=== PATIENT | female | born 1955 | race Caucasian/White ===

== ENCOUNTER → 2016-02-28 | Outpatient (CLI) | payer BC, OTHER ==
[~2016-02-28] MED LIST: ALPR-411 PO; ESTR1TAB PO; FRCT/ PO; GLUC15002 PO; LORA24TA7 PO; MULT-506 PO; OMEP20CA9 PO; RIZA10TA19 PO; SIMV20TA5 PO; SULI150T PO
--- NOTE | 2016-02-28 16:30 | DIAGNOSTIC IMAGING REPORT ---
RIGHT KNEE 4 OR MORE CLINICAL HISTORY: RIGHT KNEE PAIN Right COMPARISON STUDY: None. FINDINGS: Severe cartilage space narrowing within the lateral patellofemoral compartment with [id number] articulation, subchondral sclerosis, subchondral cystic change, and marginal osteophytes. There are small marginal osteophytes within the medial and lateral compartment of the knee with associated mild cartilage space narrowing. There is mild cartilage space narrowing within the medial and lateral compartment of the left knee. No acute fracture or dislocation within the right knee. No significant knee effusion. Ossific density abutting the medial tibial spine. This favors an old ACL injury/tear. IMPRESSION: 1. No acute fracture or dislocation within the right knee. 2. Tricompartmental osteoarthritis most pronounced at the lateral patellofemoral compartment. 3. Well-corticated ossific density abutting the medial tibial spine. This may be due to an old ACL injury/tear. Electronically signed by: Freeman Zimmerman M.D. 02/28/2016 4:28 PM Dictated Date/Time: 02/28/2016 4:26 PM
== END | disposition home or self-care (01) ==
LOC: C.RDSM 10:15
PROVIDERS: ATTEND Internal Medicine
DX: M25.561 Pain in right knee (principal)

== ENCOUNTER → 2017-01-08 | Outpatient (CLI) | payer BC | END | disposition home or self-care (01) | LOC: C.PAPS 17:59 | PROVIDERS: ATTEND Obstetrics & Gynecology | DX: Z01.419 Encounter for gynecological examination (general) (routine) without abnormal findings (principal) ==

== ENCOUNTER → 2017-02-02 | Outpatient (CLI) | payer BC ==
--- NOTE | 2017-02-06 13:37 | MAMMOGRAPHY REPORT ---
BILATERAL DIGITAL SCREENING MAMMOGRAM TOMOSYNTHESIS WITH CAD: 02/02/2017 CLINICAL HISTORY: Routine screening. Patient has no complaints. TECHNIQUE: Breast tomosynthesis in addition to standard 2D mammography was performed. Current study was also evaluated with a Computer Aided Detection (CAD) system. COMPARISON: Comparison is made to exams dated: 02/02/2016 mammogram, 01/27/2015 mammogram, 4 mammogram, 01/23/2013 mammogram, and 01/23/2012 mammogram - [facility]. BREAST COMPOSITION: There are scattered areas of fibroglandular density in both breasts. FINDINGS: No suspicious masses, calcifications, or areas of architectural distortion are noted in ei ther breast. There has been no significant interval change compared to prior exams. A biopsy marker clip is again noted in the left medial breast. Bilateral nodularity is stable compared to prior exam s. A linear scar marker denotes a scar on the left upper outer breast. Bilateral benign appearing c alcifications are also stable. IMPRESSION: ACR BI-RADS CATEGORY 2: BENIGN There is no mammographic evidence of malignancy. A 1 year screening mammogram is recommended. The pa tient will receive written notification of the results. Approximately 10% of breast cancers are not detected with mammography. A negative mammographic report should not delay biopsy if a clinically suggestive mass is present. Catherine Faith M.D. /:02/02/2017 15:31:28 Classifier Tender: Miesha GALVAN)(M), [facility] letter sent: Normal 1/2 BI-RADS Code: ACR BI-RADS Category 2: Benign
== END | disposition home or self-care (01) ==
LOC: C.MAMM 13:34
PROVIDERS: ATTEND Obstetrics & Gynecology
DX: Z12.31 Encounter for screening mammogram for malignant neoplasm of breast (principal)

== ENCOUNTER → 2017-04-26 | Outpatient (CLI) | payer OTHER | END | disposition home or self-care (01) | LOC: C.LABSPEC 13:41 | PROVIDERS: ATTEND Physician Assistant | DX: N76.2 Acute vulvitis (principal) ==

== ENCOUNTER 2022-03-17 12:59 | Observation (INO) ==
--- NOTE | 2022-03-17 16:41 | Ultrasound Report ---
RIGHT LOWER EXTREMITY VENOUS DOPPLER CLINICAL HISTORY: Right leg pain and swelling. r/o DVT COMPARISON STUDY: No previous studies for comparison. TECHNIQUE: Sonography of the deep venous system of the right lower extremity was performed. Compress ion and augmentation were evaluated. FINDINGS: There is no deep venous thrombus within the right common femoral or superficial femoral vei ns. Note is made of deep venous thrombus within the right popliteal, posterior tibial and anterior ti bial veins. IMPRESSION: Deep venous thrombus within the right popliteal, posterior tibial and anterior tibial vei ns. ACT 112: Negative or not required by law. Electronically signed by: Blaise Garber M.D. 03/17/2022 4:40 PM
--- NOTE | 2022-03-17 16:48 | Emergency Department Note ---
Impression & Plan DVT (deep venous thrombosis) ED Provider Note INFORMANT: Patient ED PROVIDER(S): Tate Medellin DO CHIEF COMPLAINT: Leg swelling/discomfort PLAN: Disposition: Admission Condition: Good Outpatient prescription management: none Referral: I spoke with the hospitalist, who will see the patient for a dmission/observation and further evaluation and consultation. MEDICAL DECISION MAKING: This is a 66-year-old female with a history of breast cancer in 2020 status post radiation therapy presents with a chief complaint of some discomfort in the right calf and some swelling of the ankle. She states that she has had this for couple of days. The patient reports that she recently had a inconclusive biopsy of her uterus last Sunday. She states that they are going to schedule her for hysterectomy. The patient states that she thinks this is going to happen in April. The patient reports some mild continuous bleeding since the biopsy. She states that she has been short of breath as well but she states this has been going on since she had COVID in January. Her physical exam reveals some tenderness in the right calf as well as some swelling in the right ankle. Her vital signs reveal mild hypertension. Pulse is 93. Oxygen saturation 95% on room air. Ultrasound of the right leg shows a right popliteal, posterior tibial and anterior tibial DVT. The patient's blood work shows an unremarkable CBC with no significant anemia. Chemistry panel was without electrolyte abnormality or kidney dysfunction. Troponin was negative. CT scan of the chest does sug gest a right-sided lobar pulmonary emboli. The patient was told the results of the test. She was started on IV heparin bolus and drip. She was given some IV fluids as well as some IV morphine for her discomfort. I spoke with the hospitalist about the patient. She will be seen for further inpatient evaluation and care. Triage Nursing notes reviewed. Vital Signs: reviewed Prior /Outside records reviewed: Gynecology visit from 03/08/2022 shows concerning findings for possible uterine cancer. Also evaluated for postmenopausal bleeding. Differential diagnosis: Differential includes DVT, PE, anemia, electrolyte abnormality, infection, other Diagnostics, as interpreted by me: 12 lead ECG: Sinus rhythm rate of 78 first-degree AV block. No ST elevation. No PVCs. Normal QTc. Cardiac Monitoring ordered: Sinus rhythm in the 70s. Medical decision rules: PERC RULE positive Imaging studies: Ultrasound of the leg shows a DVT. CT scan of the chest did not show pneumonia but does show PE. Procedures: none. Critical care: I have personally spent 30 minutes of critical care time in the direct management of this patient. This includes bedside care, interpretation of diagnostic studies, and testing, discussion with consultants, patient, and family members, and other required patient management activities. This 30 minutes is in excess of all separately billable procedures. HPI: See MDM above. PAST MEDICAL HISTORY: See Below PAST SURGICAL HISTORY: See Below SOCIAL HISTORY: See Below HOME MEDICATIONS: See Below ALLERGIES: See Below VITALS: See Below PHYSICAL EXAMINATION: CONSTITUTIONAL/VITAL SIGNS: Reviewed GENERAL: Non-toxic in appearance. INTEGUMENTARY: Warm, dry, and [place]. HEAD: Normocephalic. EYES: without scleral icterus. ENT/OROPHARYNX: clear and moist. RESPIRATORY: No increased work of breathing. Lungs clear. CARDIOVASCULAR: Regular rate. Regular rhythm. GI/ABDOMEN: Soft and nontender. . EXTREMITIES: Right calf tenderness with some edema to the right ankle. NEUROLOGICAL: Intact without focal deficits. PSYCHIATRIC: Normal affect. MUSCULOSKELETAL: Normal. TRIAGE NURSING DOCUMENTATION REVIEWED. Past Med/Surg History Medical History Anxiety Breast CA 2020 radiation tx- dr marilyn PENALOZA Degenerative disc disease Diverticulitis of colon GERD (gastroesophageal reflux disease) Hyperlipidemia Incontinence Migraine Osteoarthritis Temporomandibular joint disorder NO HX OF LOCKING Surgical History History of breast biopsy History of colonoscopy History of cystoscopy History of esophagogastroduodenoscopy (EGD) History of eye surgery L History of tonsillectomy History of tooth extraction S/P cervical spinal fusion 06/2021 elsi morales S/P cystoscopy S/P lumpectomy, right breast 2020 Status post left foot surgery Status post right foot surgery right foot plantar fascia release and nerve decompression Family History Grandmother (Paternal) Family history of diabetes mellitus Brother Cardiac disorder Heart disease Mother Hypertension Breast cancer Cancer Allergies Father Cancer Hearing loss Other No family history of bleeding disorder Denies family history of Stroke Asthma Social History Smoking Status: Never smoker Tobacco Type: Cigarettes Second Hand Exposure: No; Hx Alcohol Use: Yes Alcohol type: wine Alcohol Intake Frequency: 2-3 x/Week Hx Substance Use: Yes (CBD with small dose of THC (OTC dose)-tincture) Preferred Language: Bulgarian Communication Ability: Effective Visual Impairment: No Limitations Hearing Ability: Normal 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 Beliefs That Will Affect Care: None marital status: Current Living Situation: Spouse current occupational status: retired current occupation: Retired from [employer] Feels Safe at Home: Yes caffeine: Yes during the past year weight has: remained stable Physical Activity Frequency: Daily Assistive Devices: Glasses Allergies Allergies Allergy/AdvReac Type Severity Reaction Status Date / Time amoxicillin [From Augmentin] Allergy Intermediate Hives Verified 03/15/22 13:02 ciprofloxacin [From Cipro] Allergy Intermediate Hives Verified 03/15/22 13:02 clavulanic acid Allergy Intermediate Hives Verified 03/15/22 13:02 [From Augmentin] Sulfa (Sulfonamide Allergy Intermediate HIVES Verified 03/15/22 13:02 Antibiotics) Home Meds Home Medications Medication Instructions Recorded Confirmed azmoiydvsr-ywyticiyojxdu-fgcqstxq 1 cap PO Q6 PRN Migraine Headache 01/23/18 03/15/22 50 mg-300 mg-40 mg capsule (Fioricet) multivitamin 1 tab PO QAM 01/23/18 03/15/22 omeprazole magnesium 20 mg 20 mg PO QAM 01/23/18 03/15/22 tablet,delayed release (Prilosec OTC) rizatriptan 10 mg tablet (Maxalt) 1 tab PO UD PRN Migraine Headache 01/23/18 03/15/22 simvastatin 20 mg tablet (Zocor) 20 mg PO HS 01/23/18 03/15/22 sucralfate 1 gram tablet (Carafate) 1 g PO HS 01/23/18 03/15/22 sulindac 150 mg tablet 150 mg PO BID 12/30/18 03/15/22 turmeric 400 mg capsule 400 mg PO QAM 04/12/20 03/15/22 antiarthritic combination no.2 900 1,500 mg PO QAM 04/14/20 03/15/22 mg tablet (glucosamine-chondroitin) calcium carbonate 600 mg-vitamin 1 cap PO QAM 04/14/20 03/15/22 D3 12.5 mcg (500 unit) capsule (Calcium 600 with Vitamin D3) fluticasone propionate 50 1 spray intranasal BID 04/14/20 03/15/22 mcg/actuation nasal spray,suspension nystatin-triamcinolone 100,000 1 applic topical BID PRN Rash 09/14/21 03/15/22 unit/gram-0.1 % topical ointment tamoxifen 20 mg tablet 20 mg PO HS 09/23/21 03/15/22 Previous Rx's Medication Instructions Recorded 3-in-1 Commode #1 ea 07/15/20 conjugated estrogens 0.625 mg/gram 0.625 mg vaginal 2XWK #30 grams 12/20/21 vaginal cream (Premarin) alprazolam 0.25 mg tablet 0.25 mg PO HS PRN Sleep #30 tabs 02/20/22 vibegron 75 mg tablet (Gemtesa) 75 mg PO DAILY #90 tabs 03/15/22 Results & Data (ED) Vital Signs Vital Signs - 24 hr 03/17/22 13:16 03/17/22 17:17 03/17/22 17:19 Temperature 36.7 C Temperature Source Temporal Artery Scan Pulse Rate 93 H 78 Pulse Rate [Left Finger] 78 Pulse Rate from SpO2 Sensor Pulse Rhythm Regular Pulse Rhythm [Left Finger] Regular Pulse Strength [Left Finger] Normal Respiratory Rate 20 20 20 Respiratory Effort / Characteristics Non-Labored Spontaneous Non-Labored Spontaneous Respiratory Depth Normal Normal Respiratory Pattern Regular Regular Blood Pressure 162/93 H Blood Pressure [Right Arm] 167/88 H Blood Pressure Mean 116 Blood Pressure Mean [Right Arm] 114 Blood Pressure Position [Right Arm] Sitting Pulse Oximetry 95 97 97 Oxygen Delivery Method Room Air Room Air Room Air Sepsis Recent Fever Within 48 Hours No Sepsis New/Unexplained Change in Mental Status No Sepsis Action Taken by Nursing No Action Required 03/17/22 18:02 03/17/22 18:02 03/17/22 18:30 Temperature Temperature Source Pulse Rate 90 Pulse Rate [Left Finger] Pulse Rate from SpO2 Sensor 91 H Pulse Rhythm Pulse Rhythm [Left Finger] Pulse Strength [Left Finger] Respiratory Rate 20 Respiratory Effort / Characteristics Respiratory Depth Respiratory Pattern Blood Pressure 149/91 H 129/111 H Blood Pressure [Right Arm] Blood Pressure Mean 110 117 Blood Pressure Mean [Right Arm] Blood Pressure Position [Right Arm] Pulse Oximetry 98 Oxygen Delivery Method Sepsis Recent Fever Within 48 Hours Sepsis New/Unexplained Change in Mental Status Sepsis Action Taken by Nursing 03/17/22 18:30 Temperature Temperature Source Pulse Rate 85 Pulse Rate [Left Finger] Pulse Rate from SpO2 Sensor 85 Pulse Rhythm Pulse Rhythm [Left Finger] Pulse Strength [Left Finger] Respiratory Rate 16 Respiratory Effort / Characteristics Respiratory Depth Respiratory Pattern Blood Pressure Blood Pressure [Right Arm] Blood Pressure Mean Blood Pressure Mean [Right Arm] Blood Pressure Position [Right Arm] Pulse Oximetry 96 Oxygen Delivery Method Sepsis Recent Fever Within 48 Hours Sepsis New/Unexplained Change in Mental Status Sepsis Action Taken by Nursing Laboratory Data 03/17/22 17:00 03/17/22 17:00 Lab Results 03/17/22 03/17/22 03/17/22 Range/Units 17:00 17:00 17:00 WBC 5.91 (4.8-10.8) K/ul RBC 4.63 (4.20-5.40) M/uL Hgb 14.0 (12.0-16.0) g/dl Hct 42.3 (37.0-47.0) % MCV 91.4 (80.0-100.0) fL MCH 30.2 (25.0-34.0) pg MCHC 33.1 (32.0-36.0) g/dL RDW Std Deviation 41.0 (36.4-46.3) fL RDW Coeff of Anuj 12.2 (11.5-14.5) % Plt Count 202 (130-400) K/uL MPV 9.7 (9.4-12.4) fL Immature Gran % (Auto) 0.2 % Neut % (Auto) 47.4 % Lymph % (Auto) 36.4 % [place] % (Auto) 11.3 % Eos % (Auto) 3.9 % Baso % (Auto) 0.8 % Neut # (Auto) 2.80 (1.40-6.50) K/uL Lymph # (Auto) 2.15 (1.2-3.4) K/uL [place] # (Auto) 0.67 H (0.11-0.59) K/uL Eos # (Auto) 0.23 (0-0.50) K/uL Baso # (Auto) 0.05 (0-0.2) K/uL Immature Gran # (Auto) 0.01 (0.01-0.20) K/uL PT 10.1 (9.0-12.0) Seconds INR 0.9 (0.9-1.1) APTT 23.7 (21.0-31.0) Seconds PTT Ratio 0.9 Sodium 138 (136-145) mmol/L Potassium 4.3 (3.5-5.1) mmol/L Chloride 107 (98-107) mmol/L Carbon Dioxide 23 (21-32) mmol/L Anion Gap 8 (3-11) BUN 22 (6-23) mg/dl Creatinine 0.89 (0.6-1.2) mg/dl Est Cr Clr Drug Dosing 62.0 ml/min Est GFR ( Amer) 77.7 ml/min Est GFR (Non-Af Amer) 67.1 ml/min BUN/Creatinine Ratio 24.7 H (10-20) Glucose 103 H (70-99(Fasting)) mg/dl Calcium 10.1 (8.5-10.1) mg/dl Total Bilirubin 0.4 (0.2-1.0) mg/dl AST 20 (13-39) U/L ALT 18 (7-52) U/L Alkaline Phosphatase 71 (34-104) U/L Troponin I High Sens 2.8 (0-14) pg/ml Total Protein 8.2 (6.0-8.3) gm/dl Albumin 4.6 (3.4-5.0) gm/dl Globulin 3.6 (2.5-4.0) gm/dl Albumin/Globulin Ratio 1.3 (0.9-2) Administered Medications Discontinued Medications Sodium Chloride (Nss) 500 mls @ 999 mls/hr IV .Q31M STA Stop: 03/17/22 17:22 Last Infusion: 03/17/22 18:02 Dose: 0 mls/hr Documented By: Admin: 03/17/22 17:21 Dose: 999 mls/hr Documented By: LOAN Ioversol (Optiray 320 500ml) 120 ml IV ONCE ONE Stop: 03/17/22 17:52 Last Admin: 03/17/22 17:55 Dose: 120 ml Documented By: MERCED Imaging Data Radiologist's Impression: Venous Doppler Study 03/17/22 13:19 RIGHT LOWER EXTREMITY VENOUS DOPPLER CLINICAL HISTORY: Right leg pain and swelling. r/o DVT COMPARISON STUDY: No previous studies for comparison. TECHNIQUE: Sonography of the deep venous system of the right lower extremity was performed. Compression and augmentation were evaluated. FINDINGS: There is no deep venous thrombus within the right common femoral or superficial femoral veins. Note is made of deep venous thrombus within the right popliteal, posterior tibial and anterior tibial veins. IMPRESSION: Deep venous thrombus within the right popliteal, posterior tibial and anterior tibial veins. ACT 112: Negative or not required by law. Electronically signed by: Blaise Garber M.D. 03/17/2022 4:40 PM Chest CTA 03/17/22 16:52 CT ANGIOGRAPHY OF THE CHEST, PULMONARY EMBOLUS PROTOCOL CLINICAL HISTORY: Dyspnea, US shows DVT COMPARISON STUDY: Chest radiograph December 31, 2018. TECHNIQUE: Following IV administration of 120 mL of Optiray, helical axial images of the chest were obtained utilizing the pulmonary embolus protocol. Maximal intensity projections and sagittal and coronal reformats were viewed on an independent 3D workstation. IV contrast was administered without complication. Automated exposure control was utilized for the study. A dose lowering technique was utilized adhering to the principles of ALARA. CT DOSE: 534.66 mGy.cm FINDINGS: Lobar pulmonary emboli within the right lung are noted. Specifically, there is an embolus within the lobar branches to the right lower and right middle lobes. No pneumothorax or pleural effusion. No pulmonary infarct is present. Mild cardiomegaly is noted. There is no pericardial effusion. No thoracic lymphadenopathy is noted. There are no suspicious pulmonary nodules. Groundglass opacities favor atelectasis. No acute fracture within the bony thorax is noted. IMPRESSION: 1. Right-sided lobar pulmonary emboli. No pulmonary infarct. 2. No consolidation. 3. Mild cardiomegaly. ACT 112: Negative or not required by law. Electronically signed by: Blaise Garber M.D. 03/17/2022 6:08 PM Discharge Plan Visit Data Chief Complaint: Illness Stated Complaint: CONCERN OF BLOODCLOT ED Provider: Tate Medellin Discharge Problem: DVT (deep venous thrombosis) Patient Disposition: Being Evaluated by Hospitalist Forms Stand Alone Forms: [facility] Prescriptions Prescriptions: No Action fluticasone propionate 50 mcg/actuation spray,suspension 1 spray intranasal BID Rx Instructions: administer into each nostril glucosamine-chondroitin 900 mg tablet 1,500 mg PO QAM calcium carbonate-vitamin D3 [Calcium 600 with Vitamin D3] 600 mg(1,500mg) -500 unit capsule 1 cap PO QAM Premarin 0.625 mg/gram cream 0.625 mg vaginal 2XWK Qty: 30 3RF alprazolam 0.25 mg tablet 0.25 mg PO HS PRN (Reason: Sleep) Qty: 30 3RF Rx Instructions: TAKE 1 TABLET BY MOUTH AT BEDTIME NEEDED FOR SLEEP turmeric 400 mg capsule 400 mg PO QAM Gemtesa 75 mg tablet 75 mg PO DAILY Qty: 90 3RF (DME) 3-in-1 Commode Misc See Rx Instructions .MEDSUPPLY Qty: 1 0RF Rx Instructions: As directed multivitamin Tablet 1 tab PO QAM sucralfate [Carafate] 1 gram Tablet 1 g PO HS rizatriptan [Maxalt] 10 mg Tablet 1 tab PO UD MDD 20mg PRN (Reason: Migraine Headache) Rx Instructions: use at onset of headache,may repeat in 2 hours simvastatin [Zocor] 20 mg Tablet 20 mg PO HS omeprazole magnesium [Prilosec OTC] 20 mg Tablet,Delayed Release (Dr/Ec) 20 mg PO QAM syivnpoxyh-ojzopgqwfstzr-vnmn [Fioricet] 50-300-40 mg Capsule 1 cap PO Q6 PRN (Reason: Migraine Headache) sulindac 150 mg Tablet 150 mg PO BID tamoxifen 20 mg tablet 20 mg PO HS nystatin-triamcinolone 100,000-0.1 unit/gram-% ointment 1 applic topical BID PRN (Reason: Rash) Referrals Referrals: Tyler Paredes MD [Primary Care Provider] -
[2022-03-17] MEDS ORDERED: SODIUM CHLORIDE 0.9% 500 ML IV STA (16:52)
[2022-03-17 17:28] LABS: Basophils # (auto) 0.05 K/uL (0-0.2); Basophils % (auto) 0.8 %; Eosinophils # (auto) 0.23 K/uL (0-0.50); Eosinophils % (auto) 3.9 %; Hematocrit (blood only) 42.3 % (37.0-47.0); Immature Granulocytes # (auto) 0.01 K/uL (0.01-0.20); Immature Granulocytes % (auto) 0.2 %; Lymphocytes # (auto) 2.15 K/uL (1.2-3.4); Lymphocytes % (auto) 36.4 %; Mean Corpuscular Hemoglobin 30.2 pg (25.0-34.0); Mean Corpuscular Hgb Conc 33.1 g/dL (32.0-36.0); Mean Corpuscular Volume 91.4 fL (80.0-100.0); Mean Platelet Volume 9.7 fL (9.4-12.4); Monocytes # (auto) 0.67 K/uL (0.11-0.59); Monocytes % (auto) 11.3 %; Neutrophils % (auto) 47.4 %; Platelet Count 202 K/uL (130-400); RDW Coefficient of Variation 12.2 % (11.5-14.5); Red Blood Count 4.63 M/uL (4.20-5.40); White Blood Count 5.91 K/ul (4.8-10.8)
[2022-03-17 17:35] LABS: Albumin Globulin Ratio 1.3 (0.9-2); Albumin Level 4.6 gm/dl (3.4-5.0); BUN Creatinine Ratio 24.7 (10-20); Bilirubin,Total 0.4 mg/dl (0.2-1.0); Calcium 10.1 mg/dl (8.5-10.1); Est GFR (African American) 77.7 ml/min; Est GFR (Non-African American) 67.1 ml/min; Globulin 3.6 gm/dl (2.5-4.0); Potassium 4.3 mmol/L (3.5-5.1); Total Protein 8.2 gm/dl (6.0-8.3)
[2022-03-17 17:42] LABS: Troponin I High Sensitivity 2.8 pg/ml (0-14)
[2022-03-17 17:51] LABS: INR 0.9 (0.9-1.1); Partial Thromboplastin Ratio 0.9; Partial Thromboplastin Time 23.7 Seconds (21.0-31.0); Prothrombin Time 10.1 Seconds (9.0-12.0)
[2022-03-17] MEDS ORDERED: OPTIRAY 320 500ml IV ONE (17:51)
--- NOTE | 2022-03-17 18:10 | CT Scan Report ---
CT ANGIOGRAPHY OF THE CHEST, PULMONARY EMBOLUS PROTOCOL CLINICAL HISTORY: Dyspnea, US shows DVT COMPARISON STUDY: Chest radiograph December 31, 2018. TECHNIQUE: Following IV administration of 120 mL of Optiray, helical axial images of the chest were o btained utilizing the pulmonary embolus protocol. Maximal intensity projections and sagittal and cor onal reformats were viewed on an independent 3D workstation. IV contrast was administered without co mplication. Automated exposure control was utilized for the study. A dose lowering technique was ut ilized adhering to the principles of ALARA. CT DOSE: 534.66 mGy.cm FINDINGS: Lobar pulmonary emboli within the right lung are noted. Specifically, there is an embolus within the lobar branches to the right lower and right middle lobes. No pneumothorax or pleural effus ion. No pulmonary infarct is present. Mild cardiomegaly is noted. There is no pericardial effusion. N o thoracic lymphadenopathy is noted. There are no suspicious pulmonary nodules. Groundglass opacities favor atelectasis. No acute fracture within the bony thorax is noted. IMPRESSION: 1. Right-sided lobar pulmonary emboli. No pulmonary infarct. 2. No consolidation. 3. Mild cardiomegaly. ACT 112: Negative or not required by law. Electronically signed by: Blaise Garber M.D. 03/17/2022 6:08 PM
[2022-03-17] MEDS ORDERED: Heparin IV Adult Wt-Based Standard WITH Bolus Protocol IV STA (18:19)
[2022-03-17] MEDS ORDERED: Heparin IV Adult Wt-Based Standard WITH Bolus Protocol IV SCH (18:30)
[2022-03-17] MEDS ORDERED: HEPARIN SOD (PORCINE) 1000 UNIT/ML IV ONE ×2 (18:35→18:45)
[2022-03-17] MEDS ORDERED: MoRPHine SULFATE 2 MG/ML CARP IV STA (18:38)
[2022-03-17] MEDS ORDERED: HEPARIN SODIUM/DEXTROSE 25,000 UNITS/500 ML BAG IV SCH (18:45)
--- NOTE | 2022-03-17 19:23 | History & Physical Report ---
Date of Service March 17, 2022 Assessment & Plan (1) Pulmonary embolism: (2) DVT (deep venous thrombosis): Plan: RLE DVT/ PE present on arrival Patient is 66-year-old female with PMH right breast CA s/p lumpectomy and radiation, prediabetes, HLD, GERD, thyroid nodule presented to ER with complaint of right lower leg discomfort x couple of days and right ankle swelling x 1 day. Current workup for post-menopausal bleeding possible uterine malignancy. Recent COVID-19 in 01/2022. In ER no hypoxia or tachycardia RLE Venous Doppler: Deep venous thrombus within the right popliteal, posterior tibial and anterior tibial veins. CTA Chest: Right-sided lobar pulmonary emboli. No pulmonary infarct. No consolidation. Mild cardiomegaly. In ER Heparin IV started Continue IV heparin Monitor for any bleeding/increased vaginal bleeding CBC, BMP in am (3) Post-menopausal bleeding: Plan: Several episodes vaginal bleeding. Following with [facility] gynecology, concern for possible underlying uterine malignancy. 03/08/2022 endometrial biopsy: Atrophic endometrium per chart review. Having vaginal spotting since biopsy Will need to have outpatient f/u with gynecology oncology for further work-up (4) Prediabetes: Plan: A1c: 5.5 on 05/2021 Current diet controlled. Recently prescribed Ozempic however has not started yet Diabetic diet (5) Breast cancer: Plan: History of right breast CA s/p lumpectomy and radiation Currently tamoxifen on hold per oncology, Dr. Meza (6) Hyperlipidemia: Plan: Continue simvastatin (7) GERD (gastroesophageal reflux disease): Plan: Continue PPI, Carafate DVT Prophylaxis On Heparin IV for DVT/PE present upon arrival Full Code as per discussion with pt Follows with Dr Paredes for routine care Pt was seen and care coordinated with Dr Angulo. See addendum I spent a total of 60 minutes reviewing notes, outpatient records, labs, medication, coordinating, documenting and providing care for this patient excluding time spent in the performance of separately billed services. History of Present Illness Chief Complaint: Right ankle swelling, right leg discomfort Primary Care Provider: Tyler Paredes MD Patient is 66-year-old female with PMH right breast CA s/p lumpectomy and radiation, prediabetes, HLD, GERD, thyroid nodule presented to ER with complaint of right lower leg discomfort and right ankle swelling. Patient reports has been having bilateral foot pain and calf tenderness for the past 2 months. Several days ago started with increased right calf discomfort. Yesterday noted swelling to right ankle. States past couple of days has noted mild shortness of breath. Denies chest pain. History COVID-19 in January 2022 with symptoms of headache, malaise that lasted for approximately 4 days. Patient with current work-up for postmenopausal vaginal bleeding. Initial episode started in January 2022. Had another episode of vaginal bleeding couple weeks ago. Followed with [place] gyne[facility], concern for possible underlying uterine malignancy. 03/08/2022 endometrial biopsy: Atrophic endometrium. Since biopsy has been having vaginal spotting, using couple of panty liners a day. Denies soaking through any pads/liners. Is to be referred to gynecology oncology for further work-up and consideration of possible D&C or hysterectomy. Oncology, Dr. Meza discontinued tamoxifen 1 week ago secondary to uterine bleeding. Denies recent prolonged immobilization or recent travel. Denies fever/chills, diaphoresis, N/V/D/C, DAIGLE, dizziness, syncope, vision changes, neck pain, CP, orthopnea, palpitations, cough, hemoptysis, sore throat, choking, otalgia, rhinorrhea, abdominal pain, paresthesias, weakness, rashes, urinary symptoms. Allergies Allergy/AdvReac Type Severity Reaction Status Date / Time amoxicillin [From Augmentin] Allergy Intermediate Hives Verified 03/15/22 13:02 ciprofloxacin [From Cipro] Allergy Intermediate Hives Verified 03/15/22 13:02 clavulanic acid Allergy Intermediate Hives Verified 03/15/22 13:02 [From Augmentin] Sulfa (Sulfonamide Allergy Intermediate HIVES Verified 03/15/22 13:02 Antibiotics) Home Medications Medication Instructions Recorded Confirmed Type [id number]-qusuiwktstpzx-hekxaevf 1 cap PO Q6 PRN Migraine Headache 01/23/18 03/17/22 History 50 mg-300 mg-40 mg capsule (Fioricet) multivitamin 1 tab PO QAM 01/23/18 03/17/22 History omeprazole magnesium 20 mg 20 mg PO QAM 01/23/18 03/17/22 History tablet,delayed release (Prilosec OTC) rizatriptan 10 mg tablet (Maxalt) 1 tab PO UD PRN Migraine Headache 01/23/18 03/17/22 History simvastatin 20 mg tablet (Zocor) 20 mg PO HS 01/23/18 03/17/22 History sucralfate 1 gram tablet (Carafate) 1 g PO HS 01/23/18 03/17/22 History sulindac 150 mg tablet 150 mg PO BID PRN Moderate Pain 12/30/18 03/17/22 History (Scale Score 5-6) turmeric 400 mg capsule 400 mg PO QAM 04/12/20 03/17/22 History calcium carbonate 600 mg-vitamin 1 cap PO QAM 04/14/20 03/17/22 History D3 12.5 mcg (500 unit) capsule (Calcium 600 with Vitamin D3) fluticasone propionate 50 1 spray intranasal BID 04/14/20 03/17/22 History mcg/actuation nasal spray,suspension tamoxifen 20 mg tablet 20 mg PO HS 09/23/21 03/17/22 History vibegron 75 mg tablet (Gemtesa) 75 mg PO DAILY #90 tabs 03/15/22 03/17/22 Rx alprazolam 0.25 mg tablet 0.25 mg PO HS 03/17/22 03/17/22 History cholecalciferol (vitamin D3) 125 5,000 unit PO DAILY 03/17/22 03/17/22 History mcg (5,000 unit) tablet (Vitamin D3) docusate sodium 100 mg capsule 100 mg PO DAILY 03/17/22 03/17/22 History Past Med/Surg History Medical History (Updated 03/17/22 @ 20:33 by Kiara Lim PA-C) Anxiety Breast CA 2020 radiation tx- dr marilyn PENALOZA Degenerative disc disease Diverticulitis of colon GERD (gastroesophageal reflux disease) Hyperlipidemia Incontinence Migraine Osteoarthritis Prediabetes Temporomandibular joint disorder NO HX OF LOCKING Surgical History History of breast biopsy History of colonoscopy History of cystoscopy History of esophagogastroduodenoscopy (EGD) History of eye surgery L History of tonsillectomy History of tooth extraction S/P cervical spinal fusion 06/2021 elsi allentovishal S/P cystoscopy S/P lumpectomy, right breast 2020 Status post left foot surgery Status post right foot surgery right foot plantar fascia release and nerve decompression Family History Grandmother (Paternal) Family history of diabetes mellitus Brother Cardiac disorder Heart disease Mother Hypertension Breast cancer Cancer Allergies Father Cancer Hearing loss Other No family history of bleeding disorder Denies family history of Stroke Asthma Social History Smoking Status: Never smoker Tobacco Type: Cigarettes Second Hand Exposure: No; Hx Alcohol Use: Yes Alcohol type: wine Alcohol Intake Frequency: 2-3 x/Week Hx Substance Use: Yes (CBD with small dose of THC (OTC dose)-tincture) Preferred Language: Slovak Communication Ability: Effective Visual Impairment: No Limitations Hearing Ability: Normal Director Of Physician Practices Required: No Beliefs That Will Affect Care: None marital status: Current Living Situation: Spouse current occupational status: retired current occupation: Retired from [employer] Feels Safe at Home: Yes caffeine: Yes during the past year weight has: remained stable Physical Activity Frequency: Daily Assistive Devices: Glasses Review of Systems Review of Systems: All systems reviewed & are unremarkable except as noted in HPI & below Physical Exam Physical Exam: General: no distress, WDWN Head: normocephalic, atraumatic Eyes: conjunctiva non-injected, anicteric ENT: normal inspection external ears, nose, mucous membranes moist Neck: supple, trachea midline Lungs: clear, no respiratory distress, no wheezing/rhonchi/rales CV: RRR, no murmur, no pretibial edema Abd: normal BS, soft, non-tender Ext: no cyanosis, No significant edema to bilateral lower legs. +mild edema right ankle with faint erythema medial and lateral ankle, +calf tenderness RLE. Distal pulses intact, sensation to light touch intact Neuro: A&O x 3, no focal deficits noted, normal affect Skin: warm, dry Results & Data Results & Data ([facility]) Vital Signs (Past 12 Hours) Vital Signs Temp Pulse Pulse Resp BP BP Pulse Ox 03/17/22 19:00 85 19 149/110 H 95 03/17/22 18:30 85 16 96 03/17/22 18:30 129/111 H 03/17/22 18:02 90 20 98 03/17/22 18:02 149/91 H 03/17/22 17:19 78 20 97 03/17/22 17:17 78 20 167/88 H 97 03/17/22 13:16 36.7 C 93 H 20 162/93 H 95 O2 Del Method 03/17/22 19:00 Room Air 03/17/22 18:30 03/17/22 18:30 03/17/22 18:02 03/17/22 18:02 03/17/22 17:19 Room Air 03/17/22 17:17 Room Air 03/17/22 13:16 Room Air Laboratory Results Short CBC 03/17/22 Range/Units 17:00 WBC 5.91 (4.8-10.8) K/ul Hgb 14.0 (12.0-16.0) g/dl Hct 42.3 (37.0-47.0) % Plt Count 202 (130-400) K/uL BMP 03/17/22 17:00 Sodium 138 Potassium 4.3 Chloride 107 Carbon Dioxide 23 BUN 22 Creatinine 0.89 Glucose 103 H Calcium 10.1 Liver Function 03/17/22 Range/Units 17:00 Total Bilirubin 0.4 (0.2-1.0) mg/dl AST 20 (13-39) U/L ALT 18 (7-52) U/L Alkaline Phosphatase 71 (34-104) U/L Albumin 4.6 (3.4-5.0) gm/dl Diagnostic Findings Venous Doppler Study 03/17/22 13:19 RIGHT LOWER EXTREMITY VENOUS DOPPLER CLINICAL HISTORY: Right leg pain and swelling. r/o DVT COMPARISON STUDY: No previous studies for comparison. TECHNIQUE: Sonography of the deep venous system of the right lower extremity was performed. Compression and augmentation were evaluated. FINDINGS: There is no deep venous thrombus within the right common femoral or superficial femoral veins. Note is made of deep venous thrombus within the right popliteal, posterior tibial and anterior tibial veins. IMPRESSION: Deep venous thrombus within the right popliteal, posterior tibial and anterior tibial veins. ACT 112: Negative or not required by law. Electronically signed by: Blaise Garber M.D. 03/17/2022 4:40 PM Chest CTA 03/17/22 16:52 CT ANGIOGRAPHY OF THE CHEST, PULMONARY EMBOLUS PROTOCOL CLINICAL HISTORY: Dyspnea, US shows DVT COMPARISON STUDY: Chest radiograph December 31, 2018. TECHNIQUE: Following IV administration of 120 mL of Optiray, helical axial images of the chest were obtained utilizing the pulmonary embolus protocol. Maximal intensity projections and sagittal and coronal reformats were viewed on an independent 3D workstation. IV contrast was administered without complication. Automated exposure control was utilized for the study. A dose lowering technique was utilized adhering to the principles of ALARA. CT DOSE: 534.66 mGy.cm FINDINGS: Lobar pulmonary emboli within the right lung are noted. Specifically, there is an embolus within the lobar branches to the right lower and right middle lobes. No pneumothorax or pleural effusion. No pulmonary infarct is present. Mild cardiomegaly is noted. There is no pericardial effusion. No thoracic lymphadenopathy is noted. There are no suspicious pulmonary nodules. Groundglass opacities favor atelectasis. No acute fracture within the bony thorax is noted. IMPRESSION: 1. Right-sided lobar pulmonary emboli. No pulmonary infarct. 2. No consolidation. 3. Mild cardiomegaly. ACT 112: Negative or not required by law. Electronically signed by: Blaise Garber M.D. 03/17/2022 6:08 PM Supervising Physician Co-Signing Physician Notes 66-year-old female presents with worsening right lower extremity swelling and pain which has been ongoing since 1 week post COVID infection a couple months ago. She was found to have an acute right lower extremity DVT and a right lung PE. She is not working to breathe and has no chest pain or significant shortness of breath at rest. She is not hypoxic. Physical exam reveals clear lungs to auscultation bilaterally, cardiac exam reveals S1/2 heard with a regular rate and rhythm and no murmurs. She has RLE>LLE swelling. No increased temperature. Diagnostics were reviewed. This acute VTE is likely provoked by COVID-19 given the onset of pain in relationship to her infection, however, she was on tamoxifen for h/o breast cancer which has a BB warning for endometrial adenocarcinoma and VTE. This has been stopped. She also has an issue with vaginal bleeding that is scant, requiring the use of 4 thin panty liners daily that are not soaked through. She is in the process of setting up a market risk specialist onc consult for further workup. Cont heparin with transition to oral anticoagulant and discharge once bleeding is stable and H/H has not dropped, likely two days. DO Kev
[2022-03-17] MEDS ORDERED: KETOROLAC TROMETHAMINE 15 MG/ML VIAL IV STA (21:12)
[2022-03-17] MEDS ORDERED: traMADol HCL 50 MG TABLET PO PRN (21:12)
[2022-03-17] MEDS ORDERED: ACETAMINOPHEN 500 MG TAB PO STA (21:19)
[2022-03-17] MEDS ORDERED: POLYETHYLENE (MIRALAX) 17 GM PACK PO PRN (22:12)
[2022-03-17] MEDS ORDERED: ACETAMINOPHEN 325 MG TAB PO PRN (22:12)
[2022-03-17] MEDS ORDERED: SIMVASTATIN 20 MG TAB PO SCH (22:12)
[2022-03-17] MEDS ORDERED: ALPRAZolam 0.25 MG TABLET PO SCH (22:12)
[2022-03-17] MEDS ORDERED: ONDANSETRON INJ 2 MG/ML 2 ML VIAL IV PRN (22:12)
[2022-03-17] MEDS ORDERED: SUCRALFATE 1 GM TAB PO SCH (22:12)
[2022-03-17] MEDS: FLUTICASONE PROPIONATE NA SPR 16 GM BTL NAE SCH (23:08)
[2022-03-18 01:57] LABS: Partial Thromboplastin Ratio 2.1
[2022-03-18 02:23] LABS: Partial Thromboplastin Time 56.7 Seconds (21.0-31.0)
[2022-03-18 03:23] VITALS: O2SAT 94
[2022-03-18 05:58] LABS: Hematocrit (blood only) 36.2 % (37.0-47.0); Hemoglobin 12.2 g/dl (12.0-16.0); Mean Corpuscular Hemoglobin 30.6 pg (25.0-34.0); Mean Corpuscular Hgb Conc 33.7 g/dL (32.0-36.0); Mean Corpuscular Volume 90.7 fL (80.0-100.0); Mean Platelet Volume 9.7 fL (9.4-12.4); Platelet Count 173 K/uL (130-400); RDW Coefficient of Variation 12.4 % (11.5-14.5); RDW Standard Deviation 41.1 fL (36.4-46.3); Red Blood Count 3.99 M/uL (4.20-5.40); White Blood Count 5.26 K/ul (4.8-10.8)
[2022-03-18] MEDS ORDERED: ACETAMINOPHEN 500 MG TAB PO SCH (06:00)
[2022-03-18 06:19] LABS: Calcium 8.9 mg/dl (8.5-10.1); Creatinine Clr Calc Pharmacy 71.3 ml/min; Est GFR (African American) 94.1 ml/min; Est GFR (Non-African American) 81.2 ml/min; Potassium 4.2 mmol/L (3.5-5.1)
[2022-03-18] MEDS ORDERED: CHOLECALCIFEROL 5,000 UNITS 125 MCG TAB PO SCH (09:00)
[2022-03-18] MEDS ORDERED: DOCUSATE SODIUM 100 MG CAP PO SCH (09:00)
[2022-03-18] MEDS ORDERED: PANTOprazole 40 MG TAB PO SCH (09:00)
[2022-03-18] MEDS: FLUTICASONE PROPIONATE NA SPR 16 GM BTL NAE SCH (09:14)
[2022-03-18 11:28] VITALS: BP 120/71; PULSE 69; TEMP 98.6
[2022-03-18] MEDS ORDERED: APIXABAN 5 MG TABLET PO SCH (12:15)
--- NOTE | 2022-03-18 13:26 | Discharge Summary ---
Discharge Summary Date of Service March 18, 2022 Notes For Next Care Provider Please followup with any bleeding that may occur from the addition of the apixaban in the setting of known ongoing vaginal bleeding. Medication Changes From Visit Apixaban 10mg BID x 7 days, then 5mg PO BID x 3 months TRamadol PRN pain Admission HPI Per Admitting Provider Patient is 66-year-old female with PMH right breast CA s/p lumpectomy and radiation, prediabetes, HLD, GERD, thyroid nodule presented to ER with complaint of right lower leg discomfort and right ankle swelling. Patient reports has been having bilateral foot pain and calf tenderness for the past 2 months. Several days ago started with increased right calf discomfort. Yesterday noted swelling to right ankle. States past couple of days has noted mild shortness of breath. Denies chest pain. History COVID-19 in January 2022 with symptoms of headache, malaise that lasted for approximately 4 days. Patient with current work-up for postmenopausal vaginal bleeding. Initial episode started in January 2022. Had another episode of vaginal bleeding couple weeks ago. Followed with [place] gynecology, concern for possible underlying uterine malignancy. 03/08/2022 endometrial biopsy: Atrophic endometrium. Since biopsy has been having vaginal spotting, using couple of panty liners a day. Denies soaking through any pads/liners. Is to be referred to gynecology oncology for further work-up and consideration of possible D&C or hysterectomy. Oncology, Dr. Meza discontinued tamoxifen 1 week ago secondary to uterine bleeding. Denies recent prolonged immobilization or recent travel. Denies fever/chills, diaphoresis, N/V/D/C, DAIGLE, dizziness, syncope, vision changes, neck pain, CP, orthopnea, pal pitations, cough, hemoptysis, sore throat, choking, otalgia, rhinorrhea, abdominal pain, paresthesias, weakness, rashes, urinary symptoms. Principal Dx & Hospital Course #1 = Principal Diagnosis (1) Pulmonary embolism: (2) DVT (deep venous thrombosis): (3) Post-menopausal bleeding: (4) Breast cancer: Plan The patient is a 66 yo female with a history of right breast cancer s/p lumpectomy and radiation on Tamoxifen who presents with acute RLE pain. She reports this started approximately one week after getting over covid. She denied any shortness of breath or chest pain and had no tachycardia or hypoxia. Workup revealed an acute RLE DVT and right sided PE with no evidence of pulmo nary infarction. She was placed on a heparin drip with transition to apixaban and left in stable condition with close PCP follow-up. She will continue anticoagulation for at least 3 months as this was presumed to be a provoked clot from either tamoxifen or covid. She is also undergoing a workup for post- menopausal uterine bleeding in the setting of tamoxifen use which is concerning for possible adenocarcinoma. There is no evidence of abnormal pathology on the biopsy, and she is going to see gynecologic oncology for further investigation. Updated Medication List Medication Instructions Recorded Confirmed Type qflufxqihw-rknehoddtljax-ghcbstpo 1 cap PO Q6 PRN Migraine Headache 01/23/18 03/17/22 History 50 mg-300 mg-40 mg capsule (Fioricet) multivitamin 1 tab PO QAM 01/23/18 03/17/22 History omeprazole magnesium 20 mg 20 mg PO QAM 01/23/18 03/17/22 History tablet,delayed release (Prilosec OTC) rizatriptan 10 mg tablet (Maxalt) 1 tab PO UD PRN Migraine Headache 01/23/18 03/17/22 History simvastatin 20 mg tablet (Zocor) 20 mg PO HS 01/23/18 03/17/22 History sucralfate 1 gram tablet (Carafate) 1 g PO HS 01/23/18 03/17/22 History calcium carbonate 600 mg-vitamin 1 cap PO QAM 04/14/20 03/17/22 History D3 12.5 mcg (500 unit) capsule (Calcium 600 with Vitamin D3) fluticasone propionate 50 1 spray intranasal BID 04/14/20 03/17/22 History mcg/actuation nasal spray,suspension vibegron 75 mg tablet (Gemtesa) 75 mg PO DAILY #90 tabs 03/15/22 03/17/22 Rx alprazolam 0.25 mg tablet 0.25 mg PO HS 03/17/22 03/17/22 History cholecalciferol (vitamin D3) 125 5,000 unit PO DAILY 03/17/22 03/17/22 History mcg (5,000 unit) tablet (Vitamin D3) docusate sodium 100 mg capsule 100 mg PO DAILY 03/17/22 03/17/22 History apixaban 5 mg tablet 5 mg PO DIRECTED #74 tabs 03/18/22 Rx tramadol 50 mg tablet 50 mg PO Q6H PRN pain #30 tabs 03/18/22 Rx Hospital Stay Data Consultations 03/17/22 18:44 ED Decision to Admit Stat Diagnostic Imagining Performed 03/17/22 13:19 US leg [US venous doppler LE RT] Stat 03/17/22 16:52 CT angio chest PE protocol Stat Pending Results Patient Have Any Pending Studies at Discharge: No Discharge Instructions Given to Patient (Per Discharging Provider) Please take all medications as instructed on discharge list below. You are being placed on apixaban, which is a blood thinner, used to treat your new blood clot in right leg and right lung. To reduce any additional bleeding, please stop taking sulindac and avoid all NSAIDs (non-steroidal anti- inflammatory drugs). Turmeric and other herbs have also been known to be asso ciated with bleeding, so would stop those at this time, also. You will need to be on apixaban for at least 3 months. Please followup with your primary care physician within one week of discharge to touch base on your tolerance of the apixaban. You are being given Tramadol to use as needed for pain for arthritis. Please be advised this is a narcotic, and may cause drowsiness and/or constipation as only some of the side effects. Tylenol may also be used safely for pain if limited to 3000mg daily. It was a pleasure taking care of you! Please call if you have any questions or problems. You can reach a [facility] hospitalist on duty at [facility] 24 hours a day by calling [phone]. Take care of yourself. Marla Angulo DO [facility] Hospitalist Total Time Total Time Spent Total Time Spent (In Minutes): 60
--- NOTE | 2022-03-18 22:26 | Electrocardiogram Report ---
Test Reason : Blood Pressure : / mmHG Vent. Rate : 078 BPM Atrial Rate : 078 BPM P-R Int : 218 ms QRS Dur : 084 ms QT Int : 388 ms P-R-T Axes : 047 007 053 degrees QTc Int : 442 ms Poor data quality, interpretation may be adversely affected Sinus rhythm with 1st degree A-V block Otherwise normal ECG When compared with ECG of 04-OCT-2012 10:27, CT interval has increased Confirmed by Jcarlos Montana ([id number]) on 03/18/2022 10:25:51 PM Referred By: REFERRED SELF Confirmed By:Jcarlos Montana
== END 2022-03-18 14:43 | disposition home or self-care (01) | DRG 176 ==
LOC: ED 12:59 → 2W 19:30 → INTOOBSV 19:30 → SUATTDRO 19:30 → 2W 21:46